=== PATIENT | male | born 1935 | race Caucasian/White ===

== ENCOUNTER 2024-04-21 17:11 | Outpatient (CLI) | payer OTHER, SELFPAY | END 2024-04-21 17:12 | disposition home or self-care (01) | LOC: AMB 05-08 02:00 | PROVIDERS: Visit Provider Student in an Organized Health Care Education/Training Program | DX: R53.1 Weakness (principal); T17.928A Food in respiratory tract, part unspecified causing other injury, initial encounter | CPT/HCPCS: A0425; A0426 ==